=== PATIENT | male | born 1960 | race Caucasian/White ===

== ENCOUNTER → 2018-12-16 | Outpatient (CLI) | payer OTHER | LOC: COL.RAD 14:17 | DX: D49.2 Neoplasm of unspecified behavior of bone, soft tissue, and skin (principal) | CPT/HCPCS: A9585 ==

== ENCOUNTER → 2022-01-05 | Outpatient (CLI) | payer OTHER | LOC: COL.VAS 12:18 | DX: M79.89 Other specified soft tissue disorders (principal) ==

== ENCOUNTER 2022-06-05 09:54 | Outpatient (RCR) | payer OTHER ==
[~2022-06-05] VITALS: Ht 193 cm; Wt 110.0 kg
[2022-06-05] MEDS ORDERED: ZOVIRAX800 MG PO (10:31)
[2022-06-05] MEDS ORDERED: BACTRIM DS 8001 TAB PO (10:31)
[2022-06-05] MEDS ORDERED: SINGULAIR 110 MG/TAB PO (10:34)
[2022-06-05 10:35] LABS: HEMOGLOBIN 10.9 g/dl (13.5-18.0); MEAN CELL VOLUME 99 fl (80.0-100.0); MEAN CORPUSCULAR HEMOGLOBIN 34 pg (27-31); MEAN CORPUSCULAR HGB CONC 34 g/dl (33.0-37.0); MEAN PLATELET VOLUME 9.9 fl (7.4-10.4); PLATELET COUNT 77 K/mm3 (130-400); RED BLOOD COUNT 3.23 M/mm3 (4.20-5.60); REDCELL DISTRIBUTION WIDTH-CV 14.4 % (11.5-14.5)
[2022-06-05 10:36] LABS: HEMATOCRIT 31.9 % (42.0-52.0)
[2022-06-05 10:49] LABS: ALBUMIN 3.8 gm/dL (3.4-4.8); BILIRUBIN,TOTAL 0.4 mg/dL (0.2-1.2); CALCIUM 9.3 mg/dL (8.4-10.2); CREATININE, serum 0.8 mg/dL (0.72-1.25); MAGNESIUM 1.8 mg/dL (1.6-2.6); POTASSIUM 4.1 mmol/L (3.5-4.5); TOTAL PROTEIN 6.4 gm/dL (6.2-8.1)
[2022-06-05 10:58] LABS: BASOPHIL 1 % (0-2); EOSINOPHIL 3 % (0-4); LYMPHOCYTE 32 % (20.0-51.0); METAMYELOCYTE 4 % (0-0); NEUTROPHILS 41 % (42.0-75.2)
[2022-06-05 10:59] LABS: PLATELET ESTIMATE DECREASED (NORMAL)
[2022-06-05 11:12] VITALS: BP 128/78; PULSE 71; TEMP 98.1
[2022-06-06 08:12] LABS: PATHOLOGY DIFF REVIEW OK
== END 2022-06-05 11:05 | disposition home or self-care (01) ==
LOC: EUO 09:54
PROVIDERS: Internal Medicine
DX: C83.19 Mantle cell lymphoma, extranodal and solid organ sites (principal)

== ENCOUNTER → 2022-06-12 | Outpatient (CLI) | payer OTHER ==
[~2022-06-12] MED LIST: BACTRIM DS 8001 TAB PO; SINGULAIR 110 MG/TAB PO; ZOVIRAX800 MG PO
[2022-06-12 09:51] LABS: HEMOGLOBIN 11.1 g/dl (13.5-18.0); MEAN CELL VOLUME 99 fl (80.0-100.0); MEAN CORPUSCULAR HEMOGLOBIN 34 pg (27-31); MEAN CORPUSCULAR HGB CONC 34 g/dl (33.0-37.0); MEAN PLATELET VOLUME 9.7 fl (7.4-10.4); PLATELET COUNT 96 K/mm3 (130-400); RED BLOOD COUNT 3.28 M/mm3 (4.20-5.60); REDCELL DISTRIBUTION WIDTH-CV 15.1 % (11.5-14.5)
[2022-06-12 09:52] LABS: HEMATOCRIT 32.3 % (42.0-52.0)
[2022-06-12 10:04] LABS: LYMPHOCYTE 24 % (20.0-51.0)
[2022-06-12 10:06] LABS: ALBUMIN 3.8 gm/dL (3.4-4.8); BILIRUBIN,TOTAL 0.3 mg/dL (0.2-1.2); CALCIUM 9.4 mg/dL (8.4-10.2); CREATININE, serum 0.78 mg/dL (0.72-1.25); MAGNESIUM 1.8 mg/dL (1.6-2.6); TOTAL PROTEIN 6.3 gm/dL (6.2-8.1)
[2022-06-12 10:08] LABS: ANISOCYTOSIS 1+; EOSINOPHIL 9 % (0-4); NEUTROPHILS 39 % (42.0-75.2); PLATELET ESTIMATE DECREASED (NORMAL)
== END ==
LOC: COL.LAB 08:44
DX: C83.19 Mantle cell lymphoma, extranodal and solid organ sites (principal)